=== PATIENT | female | born 1955 | race African-American/Black ===

== ENCOUNTER 2018-08-07 12:12 | Emergency (ER) | payer SELFPAY ==
[~2018-08-07] VITALS: Ht 170.2 cm; Wt 81.8 kg
[~2018-08-07 12:12] MED LIST: BACL20TA PO; HYDR-4005 PO; IBUP-2030 PO; LISI1TAB11 PO; POTA10CA42 PO; TRAM50TA3 PO
[2018-08-07] MEDS ORDERED: ONDANSETRON 4MG ODT PO STA (12:53)
[2018-08-07] MEDS ORDERED: MECLIZINE 25MG TABLET PO ONE (13:00)
[2018-08-07 15:38] VITALS: BP 152/95
== END 2018-08-07 15:40 | disposition home or self-care (01) ==
LOC: ER 12:12
DX: R51 Headache (principal); R42 Dizziness and giddiness; I10 Essential (primary) hypertension; Z79.899 Other long term (current) drug therapy; Z98.890 Other specified postprocedural states
CPT/HCPCS: 99284; J8597; Q0162

== ENCOUNTER 2019-10-22 13:42 | Emergency (ER) | payer OTHER ==
[~2019-10-22] VITALS: Ht 170.2 cm; Wt 82.0 kg
[2019-10-22 14:33] VITALS: BP 156/72
[2019-10-22] MEDS ORDERED: MORPHINE SULFATE 10 MG/ML CPJ IM ONE (14:45)
[2019-10-22] MEDS ORDERED: ONDANSETRON 4MG ODT PO ONE (15:00)
== END 2019-10-22 15:54 | disposition home or self-care (01) ==
LOC: ER 14:25
DX: G89.29 Other chronic pain (principal); M54.5 Low back pain; I10 Essential (primary) hypertension; Z79.899 Other long term (current) drug therapy; Z98.890 Other specified postprocedural states
CPT/HCPCS: 96372; 99283; J2270; Q0162

== ENCOUNTER 2023-04-03 12:06 | Emergency (ER) | payer MEDICARE, BC ==
[~2023-04-03] VITALS: Ht 162.6 cm; Wt 75.0 kg
[~2023-04-03 12:06] MED LIST changes: -POTA10CA42 PO; +POTA10CA43 PO
[2023-04-03 12:07] VITALS: TEMP 98.6; O2SAT 100
[2023-04-03] MEDS ORDERED: IBUPROFEN 600MG TABLET PO ONE (15:15)
[2023-04-03 15:18] VITALS: BP 167/77; PULSE 69; RESP 16
[2023-04-03] MEDS ORDERED: MELO-104 MT (16:24)
== END 2023-04-03 17:10 | disposition home or self-care (01) ==
LOC: ER 12:06
DX: M17.12 Unilateral primary osteoarthritis, left knee (principal); I10 Essential (primary) hypertension
CPT/HCPCS: 73560; 99283

== ENCOUNTER 2023-12-11 13:36 | Emergency (ER) | payer BC, MEDICARE ==
[~2023-12-11] VITALS: Ht 167.6 cm; Wt 77.0 kg
[~2023-12-11 13:36] MED LIST changes: +MELO-104 MT; -POTA10CA43 PO; +POTA10CA83 PO
[2023-12-11 13:45] VITALS: TEMP 98.5; O2SAT 98
[2023-12-11] MEDS: ACETAMINOPHEN 500MG TABLET PO ONE (14:55)
[2023-12-11] MEDS ORDERED: ACET-2708 MT (16:16)
[2023-12-11] MEDS ORDERED: IBUP-2029 MT (16:16)
[2023-12-11] MEDS ORDERED: LIDO700A15 TP (16:16)
[2023-12-11 16:56] VITALS: BP 176/81; PULSE 76; RESP 15
== END 2023-12-11 17:11 | disposition home or self-care (01) ==
LOC: ER 13:36
DX: S22.31XA Fracture of one rib, right side, initial encounter for closed fracture (principal); I10 Essential (primary) hypertension; Z79.899 Other long term (current) drug therapy; W01.0XXA Fall on same level from slipping, tripping and stumbling without subsequent striking against object, initial encounter; Y93.89 Activity, other specified; Y92.89 Other specified places as the place of occurrence of the external cause; Y99.8 Other external cause status
CPT/HCPCS: 71101; 72170; 99284

== ENCOUNTER 2024-02-24 12:32 | Emergency (ER) | payer BC, MEDICARE ==
[~2024-02-24] VITALS: Ht 170.2 cm; Wt 79.0 kg
[~2024-02-24 12:32] MED LIST changes: +ACET-2708 MT; +IBUP-2029 MT; +LIDO700A15 TP
[2024-02-24 12:57] VITALS: TEMP 99; O2SAT 100
[2024-02-24 16:06] LABS: BASOPHILS % 0.8 % (0.0-2.0); EOSINOPHILS % 3.8 % (0.0-5.0); HEMATOCRIT. 37.2 % (36.0-48.0); LYMPHOCYTES % 24.5 % (20.0-50.0); MEAN CORPUSCULAR HEMOGLOBIN 28.4 pg (28.0-32.0); MEAN CORPUSCULAR HGB CONC 32.3 g/dL (31.0-37.0); MEAN CORPUSCULAR VOLUME 87.9 fL (81.0-99.0); MONOCYTES % 11.8 % (2.0-8.0); NEUTROPHILS % 59.1 % (40.0-76.0); PLATELET 256 x1000/uL (130-400); RED BLOOD CELL COUNT 4.23 mill/uL (4.2-5.4); RED CELL DISTRIBUTION WIDTH 13.5 % (11.6-14.6); WHITE BLOOD COUNT 5.6 x1000/uL (4.5-11.0)
[2024-02-24 16:08] LABS: CHLORIDE 110 mEq/L (98-107); POTASSIUM 3.6 mEq/L (3.5-5.1); SODIUM 140 mEq/L (136-145)
[2024-02-24 16:09] LABS: CARBON DIOXIDE 26 mEq/L (21-32)
[2024-02-24 16:10] LABS: CALCIUM 8.8 mg/dL (8.7-10.4)
[2024-02-24 16:14] LABS: CREATININE 0.6 mg/dL (0.6-1.0); GLUCOSE 86 mg/dL (70-105); UREA NITROGEN BLOOD 14 mg/dL (9-23)
[2024-02-24 16:17] LABS: TROPONIN I HIGH SENSITIVITY 6 ng/L (3.0-34)
[2024-02-24 16:37] VITALS: BP 173/84; PULSE 60; RESP 17
== END 2024-02-24 17:07 | disposition home or self-care (01) ==
LOC: ER 12:32
DX: I10 Essential (primary) hypertension (principal); R51.9 Headache, unspecified; Z98.890 Other specified postprocedural states
CPT/HCPCS: 36415; 80048; 84484; 85025; 93005; 99284

== ENCOUNTER 2024-12-04 16:28 | Emergency (ER) | payer MEDICARE, BC ==
[~2024-12-04] VITALS: Ht 170.2 cm; Wt 77.1 kg
[~2024-12-04 16:28] MED LIST changes: -POTA10CA83 PO; +POTA10CA93 PO
[2024-12-04 16:34] VITALS: O2SAT 100
[2024-12-04 16:39] VITALS: BP 165/78; PULSE 64; RESP 18; TEMP 36.8; O2SAT 99
== END 2024-12-04 18:23 | disposition home or self-care (01) ==
LOC: ER 16:28
DX: S22.32XA Fracture of one rib, left side, initial encounter for closed fracture (principal); I10 Essential (primary) hypertension; Z79.899 Other long term (current) drug therapy; Z79.1 Long term (current) use of non-steroidal anti-inflammatories (NSAID); W01.0XXA Fall on same level from slipping, tripping and stumbling without subsequent striking against object, initial encounter; Y93.89 Activity, other specified; Y92.89 Other specified places as the place of occurrence of the external cause
CPT/HCPCS: 71101; 99283